=== PATIENT | female | born 1950 | race Caucasian/White ===

== ENCOUNTER → 2017-07-17 | Outpatient (CLI) | payer MEDICARE, OTHER ==
[~2017-07-17] MED LIST: ALEN70 PO; ASPI81CH PO; BACLOFEN5 MG PO; FLUO10 PO; IBUP800 PO; LEVSOD100 PO; LEVSOD25; Multivitamin1 EAC2 PO; SPIR50 PO; TRAZ50 PO; VITAMIN D5000 UNIT PO
== END ==
LOC: LAB 19:50
DX: N39.0 Urinary tract infection, site not specified (principal)
CPT/HCPCS: 87077; 87086; 87186

== ENCOUNTER → 2017-09-27 | Outpatient (CLI) | payer MEDICARE, OTHER ==
[~2017-09-27] MED LIST changes: -ALEN70 PO; -ASPI81CH PO; -BACLOFEN5 MG PO; -FLUO10 PO; -IBUP800 PO; -LEVSOD100 PO; -Multivitamin1 EAC2 PO; -SPIR50 PO; -TRAZ50 PO; -VITAMIN D5000 UNIT PO
== END | disposition home or self-care (01) ==
LOC: LAB SHORT 10:51 → LAB 10:51
PROVIDERS: Nurse Practitioner Obstetrics & Gynecology
DX: N84.1 Polyp of cervix uteri (principal)
CPT/HCPCS: 87624; 88142

== ENCOUNTER → 2018-07-16 | Outpatient (CLI) | payer OTHER, MEDICARE ==
[~2018-07-16] MED LIST changes: +ALEN70 PO; +ASPI81CH PO; +BACLOFEN5 MG PO; +FLUO10 PO; +IBUP800 PO; +LEVSOD100 PO; +Multivitamin1 EAC2 PO; +SPIR50 PO; +TRAZ50 PO; +VITAMIN D5000 UNIT PO
== END | disposition home or self-care (01) ==
LOC: LAB EV 17:34 → LAB SHORT 17:34
DX: N39.0 Urinary tract infection, site not specified (principal)
CPT/HCPCS: 87077; 87086; 87147; 87186

== ENCOUNTER → 2018-10-17 | Outpatient (CLI) | payer OTHER, MEDICARE ==
[2018-10-19 15:06] LABS: HPV 16 Negative (Negative); HPV 18 Negative (Negative); HPV OTHER HR TYPES Negative (Negative)
== END | disposition home or self-care (01) ==
LOC: LAB 10:50 → LAB SHORT 10:50
PROVIDERS: Nurse Practitioner Obstetrics & Gynecology
DX: Z01.419 Encounter for gynecological examination (general) (routine) without abnormal findings (principal)
CPT/HCPCS: 87624; G0123

== ENCOUNTER 2018-11-03 10:50 | Day surgery (SDC) | payer OTHER, MEDICARE ==
[~2018-11-03] VITALS: Ht 167.6 cm; Wt 91.6 kg
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
--- NOTE | 2018-11-03 13:46 | NUR ---
11/03/18 1346 Yvonne Romero PT STATES 4/10 ABDOMINAL PAIN WITH NAUSEA POST-PROCEDURE. PT STATES SHE WOULD NOT TAKE MEDICATION FOR THIS LEVEL OF DISCOMFORT IF SHE WERE AT HOME. PT DENIED MEDICATION OR FURTHER INTERVENTIONS. PT STS SHE HAD A GREAT EXPERIENCE TODAY AND IT WAS "10 TIMES BETTER THAN LAST TIME." PT EAGER TO GO HOME. SPOUSE AT BEDSIDE, AGREES WITH DESIRE TO GO HOME AT THIS TIME.
== END 2018-11-03 13:49 | disposition home or self-care (01) ==
LOC: ORSCSDS 10:50
PROVIDERS: Student in an Organized Health Care Education/Training Program
PROC: 0DBH8ZX Excision of Cecum, Via Natural or Artificial Opening Endoscopic, Diagnostic (ICD-10-PCS; principal; 2018-11-03 12:00)
PROC: 0DBL8ZX Excision of Transverse Colon, Via Natural or Artificial Opening Endoscopic, Diagnostic (ICD-10-PCS; principal; 2018-11-03 12:00)
DX: Z12.11 Encounter for screening for malignant neoplasm of colon (principal); Z86.010 Personal history of colon polyps; D12.0 Benign neoplasm of cecum; D12.3 Benign neoplasm of transverse colon; K57.30 Diverticulosis of large intestine without perforation or abscess without bleeding; E03.9 Hypothyroidism, unspecified; K64.8 Other hemorrhoids; E66.9 Obesity, unspecified; Z68.32 Body mass index [BMI] 32.0-32.9, adult; F41.8 Other specified anxiety disorders; Z79.899 Other long term (current) drug therapy
CPT/HCPCS: 88305; J2250; J2405; J2704; J7120

== ENCOUNTER → 2019-08-01 | Outpatient (CLI) | payer MEDICARE, BC | END | disposition home or self-care (01) | LOC: LAB SHORT 13:04 → LAB 13:04 | DX: N39.0 Urinary tract infection, site not specified (principal) | CPT/HCPCS: 87077; 87086; 87186 ==

== ENCOUNTER → 2021-01-27 | Outpatient (CLI) | payer OTHER ==
[2021-01-28 12:02] LABS: Candida species (DNA Probe) Negative (NEGATIVE); G. vaginalis (DNA Probe) Negative (NEGATIVE); T. vaginalis (DNA Probe) Negative (NEGATIVE)
== END | disposition home or self-care (01) ==
LOC: LAB SHORT 14:24
PROVIDERS: Nurse Practitioner Family
DX: N76.0 Acute vaginitis (principal)
CPT/HCPCS: 87480; 87510; 87660

== ENCOUNTER → 2021-03-19 | Outpatient (CLI) | payer OTHER ==
[2021-03-19 21:15] LABS: Adenovirus F 40/41 Not Detected (NOT DETECT); Astrovirus Not Detected (NOT DETECT); Campylobacter Sp Not Detected (NOT DETECT); Cryptosporidium Not Detected (NOT DETECT); Cyclospora Cayetanensis Not Detected (NOT DETECT); E. Coli O157 Not Detected (NOT DETECT); Entamoeba Histolytica Not Detected (NOT DETECT); Enteroaggregative E. coli-EAEC Not Detected (NOT DETECT); Enteropathogenic E. coli-EPEC Detected (NOT DETECT); Enterotoxigenic E. coli-ETEC Not Detected (NOT DETECT); Giardia Lamblia Not Detected (NOT DETECT); Norovirus GI/GII Not Detected (NOT DETECT); Plesiomonas Shigelloides Not Detected (NOT DETECT); Rotavirus A Not Detected (NOT DETECT); Salmonella Sp Not Detected (NOT DETECT); Sapovirus Not Detected (NOT DETECT); Shiga Toxin-prod E. coli-STEC Not Detected (NOT DETECT); Shigella/Enteroin E. coli-EIEC Not Detected (NOT DETECT); Vibrio Cholerae Not Detected (NOT DETECT); Vibrio Sp Not Detected (NOT DETECT); Yersinia Enterocolitica Not Detected (NOT DETECT)
== END ==
LOC: LAB SHORT 17:31 → LAB 17:31
PROVIDERS: Physician Assistant Medical
DX: R19.7 Diarrhea, unspecified (principal)
CPT/HCPCS: 0097U

== ENCOUNTER 2022-02-23 06:45 | Day surgery (SDC) | payer OTHER ==
[~2022-02-23] VITALS: Ht 167.6 cm; Wt 94.8 kg
[2022-02-23] MEDS ORDERED: FURO20 (07:02)
[2022-02-23] MEDS ORDERED: PROBIOTIC1 EA13 (07:06)
[2022-02-23] MEDS ORDERED: MERIBIN5 MG (07:06)
== END 2022-02-23 09:40 | disposition home or self-care (01) ==
LOC: ORSCSDS 06:45
PROVIDERS: Student in an Organized Health Care Education/Training Program
PROC: 0DBM8ZX Excision of Descending Colon, Via Natural or Artificial Opening Endoscopic, Diagnostic (ICD-10-PCS; principal; 2022-02-23 08:00)
DX: Z12.11 Encounter for screening for malignant neoplasm of colon (principal); K63.5 Polyp of colon; K57.30 Diverticulosis of large intestine without perforation or abscess without bleeding; Z86.010 Personal history of colon polyps; E78.5 Hyperlipidemia, unspecified; E03.9 Hypothyroidism, unspecified; F41.9 Anxiety disorder, unspecified; Z79.899 Other long term (current) drug therapy
CPT/HCPCS: 88305; J2250; J2405; J2704; J7120

== ENCOUNTER 2022-09-13 08:18 | Emergency (ER) | payer OTHER ==
[~2022-09-13] VITALS: Ht 165.1 cm; Wt 93.0 kg
[~2022-09-13 08:18] MED LIST changes: +FURO20; +MERIBIN5 MG; +PROBIOTIC1 EA13
[2022-09-13 08:31] VITALS: BP 138/63
[2022-09-13] MEDS ORDERED: HYDR1TAB94 PO (08:49)
[2022-09-13] MEDS ORDERED: MELO7.5 PO (08:50)
[2022-09-13] MEDS ORDERED: LIDO700A20 TOP (14:37)
[2022-09-13] MEDS ORDERED: OXAYDO5 M1 PO (14:37)
== END 2022-09-13 15:00 | disposition home or self-care (01) ==
LOC: ER 08:18
DX: M51.16 Intervertebral disc disorders with radiculopathy, lumbar region (principal); Z88.2 Allergy status to sulfonamides; Z88.1 Allergy status to other antibiotic agents; Z88.8 Allergy status to other drugs, medicaments and biological substances; Z79.890 Hormone replacement therapy; Z79.899 Other long term (current) drug therapy
CPT/HCPCS: 72148; 96374; 96375; 99284-25; A9270; J1885; J3010

== ENCOUNTER 2023-04-05 10:07 | Day surgery (SDC) | payer OTHER ==
[~2023-04-05] VITALS: Ht 165.1 cm; Wt 100.2 kg
[~2023-04-05 10:07] MED LIST changes: +HYDR1TAB94 PO; +LIDO700A20 TOP; +MELO7.5 PO; +OXAYDO5 M1 PO; +THYR60 PO
[2023-04-05] MEDS ORDERED: FUROSEMIDE20 MG PO (10:59)
[2023-04-05] MEDS ORDERED: PREG150 PO (10:59)
[2023-04-05] MEDS ORDERED: ZANAFLEX413 PO (11:00)
[2023-04-05] MEDS ORDERED: FOSAMAX70 MG PO (11:00)
[2023-04-05] MEDS ORDERED: IBU800 M1 PO (11:01)
[2023-04-05] MEDS ORDERED: Phendimetrazine35 MG PO (11:07)
[2023-04-05] MEDS ORDERED: POTCHL20ER PO (11:08)
--- NOTE | 2023-04-05 12:44 | NUR ---
04/05/23 1244 JEREMY LOPEZ T/O 1225 VERSED 4MG 1236 FENTANYL 100MCG BLOCK START:1232 END BLOCK: 1239 O2 5L NC BIOX 100%
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
[2023-04-05 14:19] VITALS: BP 124/80
--- NOTE | 2023-04-05 14:19 | NUR ---
04/05/23 1419 OLIVER GALEANA DENIES PAIN AND NAUSEA
== END 2023-04-05 15:20 | disposition home or self-care (01) ==
LOC: ORSCSDS 10:07
PROVIDERS: Orthopaedic Surgery
PROC: 0RBK4ZZ Excision of Left Shoulder Joint, Percutaneous Endoscopic Approach (ICD-10-PCS; principal; 2023-04-05 11:30)
DX: M75.112 Incomplete rotator cuff tear or rupture of left shoulder, not specified as traumatic (principal); M75.42 Impingement syndrome of left shoulder; E03.9 Hypothyroidism, unspecified; E66.9 Obesity, unspecified; Z68.36 Body mass index [BMI] 36.0-36.9, adult; Z79.899 Other long term (current) drug therapy
CPT/HCPCS: J0171; J0690; J1100; J1885; J2250; J2405; J2704; J3010; J7120

== ENCOUNTER → 2023-08-29 | Outpatient (CLI) | payer OTHER ==
[~2023-08-29] MED LIST changes: +FOSAMAX70 MG PO; +FUROSEMIDE20 MG PO; +IBU800 M1 PO; +POTCHL20ER PO; +PREG150 PO; +Phendimetrazine35 MG PO; +ZANAFLEX413 PO
[2023-08-29 10:54] LABS: BASOPHILS ABSOLUTE AUTO 0.04 K/mm3 (0.00-0.23); BASOPHILS PERCENT AUTO 0 % (0-2); EOSINOPHILS ABSOLUTE AUTO 0.01 K/mm3 (0.00-0.68); EOSINOPHILS PERCENT AUTO 0 % (0-6); Hematocrit 35.1 % (33.0-51.0); Hemoglobin 11.8 g/dL (11.5-16.0); IMMATURE GRAN ABSOLUTE AUTO 0.12 K/mm3 (0.00-0.10); IMMATURE GRAN PERCENT AUTO 1 % (0-1); LYMPHOCYTES ABSOLUTE AUTO 1.62 K/mm3 (0.84-5.20); LYMPHOCYTES PERCENT AUTO 10 % (21-46); MONOCYTES ABSOLUTE AUTO 1.63 K/mm3 (0.16-1.47); MONOCYTES PERCENT AUTO 10 % (4-13); Mean Corpuscular HGB 29.1 pg (26.0-34.0); Mean Corpuscular HGB Conc 33.6 g/dL (31.5-36.5); Mean Corpuscular Volume 87 fL (80-100); Mean Platelet Volume 10.1 fL (9.1-12.4); NEUTROPHILS ABSOLUTE AUTO 13.65 K/mm3 (1.96-9.15); NEUTROPHILS PERCENT AUTO 80 % (41-73); Platelet Count 186 K/mm3 (150-400); RDW Standard Deviation 40.6 fL (35.1-46.3); Red Blood Cell Count 4.06 M/mm3 (3.80-5.20); White Blood Cell Count 17.07 K/mm3 (4.00-11.30)
[2023-08-29 11:06] LABS: Albumin, Blood 2.7 g/dL (3.4-5.0); Albumin/Globulin Ratio 0.7 (0.8-1.8); Bun/Creatinine Ratio 11.5 (12.0-20.0); Calcium, Blood 8.1 mg/dL (8.5-10.1); Creatinine, Blood 0.96 mg/dL (0.40-1.00); Globulin, Blood 3.7 g/dL (2.2-4.0); Potassium, Blood 3.4 mmol/L (3.5-5.5); Total Protein, Blood 6.4 g/dL (6.4-8.2)
== END | disposition home or self-care (01) ==
LOC: LAB 10:50 → LAB SHORT 10:50
PROVIDERS: Family Medicine
DX: E86.0 Dehydration (principal)
CPT/HCPCS: 80053; 85025

== ENCOUNTER → 2023-08-30 | Outpatient (CLI) | payer OTHER ==
[2023-08-30 13:43] LABS: BASOPHILS ABSOLUTE AUTO 0.02 K/mm3 (0.00-0.23); BASOPHILS PERCENT AUTO 0 % (0-2); EOSINOPHILS ABSOLUTE AUTO 0.09 K/mm3 (0.00-0.68); EOSINOPHILS PERCENT AUTO 1 % (0-6); Hematocrit 33.8 % (33.0-51.0); Hemoglobin 11.3 g/dL (11.5-16.0); IMMATURE GRAN ABSOLUTE AUTO 0.04 K/mm3 (0.00-0.10); IMMATURE GRAN PERCENT AUTO 0 % (0-1); LYMPHOCYTES ABSOLUTE AUTO 1.48 K/mm3 (0.84-5.20); LYMPHOCYTES PERCENT AUTO 13 % (21-46); MONOCYTES ABSOLUTE AUTO 0.74 K/mm3 (0.16-1.47); MONOCYTES PERCENT AUTO 7 % (4-13); Mean Corpuscular HGB 29.4 pg (26.0-34.0); Mean Corpuscular HGB Conc 33.4 g/dL (31.5-36.5); Mean Corpuscular Volume 88 fL (80-100); Mean Platelet Volume 10.6 fL (9.1-12.4); NEUTROPHILS ABSOLUTE AUTO 9.09 K/mm3 (1.96-9.15); NEUTROPHILS PERCENT AUTO 79 % (41-73); Platelet Count 172 K/mm3 (150-400); RDW Coefficient Variation 13.2 % (11.7-14.2); RDW Standard Deviation 42.1 fL (35.1-46.3); Red Blood Cell Count 3.85 M/mm3 (3.80-5.20); White Blood Cell Count 11.46 K/mm3 (4.00-11.30)
== END | disposition home or self-care (01) ==
LOC: LAB 13:39 → LAB SHORT 13:39
PROVIDERS: Family Medicine
DX: N10 Acute pyelonephritis (principal)
CPT/HCPCS: 85025